=== PATIENT | male | born 1940 | race Two or more races ===

== ENCOUNTER 2017-05-31 20:24 | Emergency (ER) | payer MEDICARE ==
[~2017-05-31] VITALS: Ht 167.6 cm; Wt 89.8 kg
[2017-05-31] MEDS ORDERED: VANCOMYCIN PER PHARMACY MC ONE (21:00)
[2017-05-31] MEDS ORDERED: 0.9 % SODIUM CHLORIDE 10 ML DISP.SYRIN. IV PRN (21:00)
[2017-05-31] MEDS ORDERED: PIP/TAZO PER PHARMACY MC PRN (21:00)
[2017-05-31] MEDS ORDERED: NOREPINEPHRINE BITARTRATE 8 MG in IV NORMAL SALINE 250ML 250 ML IV PRN (21:00)
[2017-05-31] MEDS ORDERED: NORMAL SALINE IV SCH (21:00)
[2017-05-31] MEDS ORDERED: HYDROCORTISONE SOD SUCC/PF 100 MG/2 ML VIAL. IV ONE (21:30)
[2017-05-31 21:42] LABS: BASO # 0.1 x10^3/uL (0.0-0.2); BASO % 0 % (0-3); EOS % 0 % (0-3); HEMATOCRIT 27.2 % (39.0-53.0); HEMOGLOBIN 9.1 g/dL (13.0-17.5); LYMPH # 0.7 x10^3/uL (1.0-4.8); LYMPH % 3 % (24-48); MEAN CORPUSCULAR HEMOGLOBIN 29 pg (25-35); MEAN CORPUSCULAR HGB CONC 33 g/dL (31-37); MEAN CORPUSCULAR VOLUME 88 fL (79-100); MONO # 1.8 x10^3/uL (0.0-1.1); MONO % 8 % (0-9); NEUT # 19.5 x10^3uL (1.8-7.7); NEUT % 88 % (31-73); PLATELET COUNT 209 x10^3/uL (140-400); RED CELL DISTRIBUTION WIDTH 14.4 % (11.5-14.5); WHITE BLOOD COUNT 22.1 x10^3/uL (4.0-11.0)
[2017-05-31] MEDS ORDERED: PIPERACILLIN/TAZOBACTAM 4.5 GM in IV NORMAL SALINE 50ML 50 ML IV ONE (21:45)
[2017-05-31] MEDS ORDERED: VANCOMYCIN 2 GM in IV NORMAL SALINE 500ML 500 ML IV ONE (21:45)
[2017-05-31 22:04] LABS: ALBUMIN 3.1 g/dL (3.4-5.0); ALBUMIN/GLOBULIN RATIO 0.8 (1.0-1.7); CALCIUM 8.8 mg/dL (8.5-10.1); CREATININE 7.4 mg/dL (0.7-1.3); GFR 7.2; POTASSIUM 5.2 mmol/L (3.5-5.1); TOTAL BILIRUBIN 0.3 mg/dL (0.2-1.0); TOTAL PROTEIN 6.8 g/dL (6.4-8.2)
[2017-05-31 22:09] LABS: INFLUENZA A PATIENT NEGATIVE (NEGATIVE); INFLUENZA B PATIENT NEGATIVE (NEGATIVE)
[2017-05-31 22:59] LABS: BILIRUBIN,URINE NEG (NEG); CLARITY,URINE HAZY; COLOR,URINE STRAW; GLUCOSE,URINE NEG (NEG)
[2017-05-31 23:00] LABS: AMORPHOUS SEDIMENT,UR PRESENT /HPF; BACTERIA,URINE MANY /HPF (0-FEW); NITRITE,URINE NEG (NEG); SQUAMOUS EPITHELIAL CELL,UR OCC /LPF; UROBILINOGEN,URINE 0.2 mg/dL (0.2 mg/dL)
[2017-05-31 23:00] LABS: % LYMPHS 2 % (24-48); % MONOS 7 % (0-10); % SEGS 91 % (35-66)
[2017-05-31 23:01] LABS: PLT ESTIMATE ADEQUATE (ADEQUATE)
--- NOTE | 2017-05-31 23:07 | EKG ---
[address] [address] Test Date: 2017-05-31 Test Time: 21:21:39 Pat Name: DORENE MOLINA Department: Room: Gender: M Community Aide: : 1940 Requested By: LUIS ANGEL MILNER Order Number: [id number] Reading MD: Measurements Intervals [place] Rate: 89 P: 35 NE: 154 QRS: 9 QRSD: 102 T: -31 QT: 344 QTc: 425 Interpretive Statements SINUS RHYTHM QRS(T) CONTOUR ABNORMALITY CONSISTENT WITH INFERIOR INFARCT AGE UNDETERMINED ST & T ABNORMALITY, CONSIDER ANTEROLATERAL ISCHEMIA OR LEFT VENTRICULAR STRAIN ABNORMAL ECG RI6.01 No previous ECG available for comparison
[2017-05-31] MEDS ORDERED: BISA5TAB4 PO (23:38)
[2017-05-31] MEDS ORDERED: PRAV20TA2 PO (23:38)
[2017-05-31] MEDS ORDERED: GABA600T2 PO (23:38)
[2017-05-31] MEDS ORDERED: LOSA50TA6 PO (23:38)
[2017-05-31] MEDS ORDERED: ASCO500T55 PO ×2 (23:38)
[2017-05-31] MEDS ORDERED: CLON0.1T PO (23:38)
[2017-05-31] MEDS ORDERED: MULT1TAB52 PO (23:38)
[2017-05-31] MEDS ORDERED: CEPH-281 PO (23:38)
[2017-05-31] MEDS ORDERED: OMEG-57 PO (23:38)
[2017-05-31] MEDS ORDERED: ASPI81TA44 PO (23:38)
[2017-06-01 01:00] VITALS: BP 126/56
--- NOTE | 2017-06-01 06:10 | ED.ADGEN ---
Past History Past Medical History: Constipation, Hypertension, Renal Disease, UTI Past Surgical History: TURP Alcohol Use: None Drug Use: None Adult General Chief Complaint Chief Complaint " I am sick.. really sick.." HPI HPI Patient is a 77 year old male who is visiting from [place] for his son' s promotion to [employer] tomorrow. Patient complaining of rigors and fever, generalized malaise, myalgia, arthralgia. states patient is also had some mental status changes with the elevated temps of excess of 103 at son 's home tonight. Patient currently on Keflex for possible urinary tract infection issued by his primary care physician in [place]. Patient has history of previous renal insufficiency, hypertrophic prostate, diabetes. No specific history of immunosuppression and ill contacts. Recent travel for [place]. Review of Systems Review of Systems Constitutional: History of fever or chills [] Eyes: Denies change in visual acuity, redness, or eye pain [] HENT: Denies nasal congestion or sore throat [] Respiratory: History of a non-reductive cough and shortness of breath [] Cardiovascular: No additional information not addressed in HPI [] GI: Denies abdominal pain, nausea, vomiting, bloody stools or diarrhea [] : History of dysuria] Musculoskeletal: Recent ]history of generalized myalgia and arthralgia Integument: Denies rash or skin lesions [] Neurologic: Denies headache, focal weakness or sensory changes [] Endocrine: Denies polyuria or polydipsia [] Family History Family History Diabetes Current Medications Current Medications Current Medications Medications (Trade) Dose Ordered Sig/Bib Start Time Stop Time Status Last Admin Dose Admin Fentanyl Citrate (Fentanyl 2ml Vial) 25 mcg PRN Q15MIN PRN 05/31/17 21:00 06/01/17 01:58 DC Hydrocortisone Sodium Succinate (Solu-CORTEF) 100 mg 1X ONCE 05/31/17 21:30 05/31/17 21:31 DC 05/31/17 22:33 100 MG Norepinephrine Bitartrate 8 mg/ Sodium Chloride 258 ml @ 0 mls/hr CONT PRN 05/31/17 21:00 06/01/17 01:58 DC Piperacillin Sod/ Tazobactam Sod (Zosyn Per Pharmacy) 1 each PRN DAILY PRN 05/31/17 21:00 06/01/17 01:58 DC Piperacillin Sod/ Tazobactam Sod 4.5 gm/Sodium Chloride 50 ml @ 100 mls/hr 1X ONCE 05/31/17 21:45 05/31/17 22:14 DC 05/31/17 22:35 100 MLS/HR Sodium Chloride 2,700 ml @ 2,700 mls/hr Q1H 05/31/17 21:00 06/01/17 01:58 DC 05/31/17 22:29 2,700 MLS/HR Sodium Chloride (Normal Saline Flush) 10 ml QSHIFT PRN 05/31/17 21:00 06/01/17 01:58 DC Vancomycin HCl (Vanco Per Pharmacy) 1 each 1X ONCE 05/31/17 21:00 05/31/17 21:24 DC Vancomycin HCl 2 gm/Sodium Chloride 500 ml @ 250 mls/hr 1X ONCE 05/31/17 21:45 05/31/17 23:44 DC 05/31/17 22:29 250 MLS/HR See nursing for home medications Allergies Allergies Allergies Coded Allergies Type Severity Reaction Last Updated Verified No Known Drug Allergies 05/31/17 No Physical Exam Physical Exam Constitutional: In acute distress, ill in appearance. [] HENT: Normocephalic, atraumatic, bilateral external ears normal, oropharynx moist, no oral exudates, nose normal. [] Eyes: PERRLA, EOMI, conjunctiva normal, no discharge. [] Neck: Normal range of motion, no tenderness, supple, no stridor. [] Cardiovascular: Tachycardia rate regular rhythm, no murmur, PMI to the left Lungs & Thorax: Bilateral breath sounds equal with few scattered wheezes on auscultation [] Abdomen: Bowel sounds normal, soft, no tenderness, no masses, no pulsatile masses. [] Skin: Warm, diaphoretic, no erythema, no rash. [] Back: No tenderness, no CVA tenderness. [] Extremities: No tenderness, no cyanosis, no clubbing, ROM intact, no edema. No obvious signs of cording Neurologic: Alert and oriented X 3, generalized motor weakness, decreased plantar sensory function, no gross focal deficits noted. [] Psychologic: Affect anxious, mood depressed Current Patient Data Vital Signs Vital Signs Date Time Temp Pulse Resp B/P (MAP) Pulse Ox O2 Delivery O2 Flow Rate FiO2 06/01/17 01:00 99.2 90 18 126/56 (79) 96 Room Air Lab Results Laboratory Tests Test 05/31/17 20:58 05/31/17 22:00 White Blood Count 22.1 x10^3/uL (4.0-11.0) H Red Blood Count 3.10 x10^6/uL (4.30-5.70) L Hemoglobin 9.1 g/dL (13.0-17.5) L Hematocrit 27.2 % (39.0-53.0) L Mean Corpuscular Volume 88 fL (79-100) Mean Corpuscular Hemoglobin 29 pg (25-35) Mean Corpuscular Hemoglobin Concent 33 g/dL (31-37) Red Cell Distribution Width 14.4 % (11.5-14.5) Platelet Count 209 x10^3/uL (140-400) Neutrophils (%) (Auto) 88 % (31-73) H Lymphocytes (%) (Auto) 3 % (24-48) L Monocytes (%) (Auto) 8 % (0-9) Eosinophils (%) (Auto) 0 % (0-3) Basophils (%) (Auto) 0 % (0-3) Neutrophils # (Auto) 19.5 x10^3uL (1.8-7.7) H Lymphocytes # (Auto) 0.7 x10^3/uL (1.0-4.8) L Monocytes # (Auto) 1.8 x10^3/uL (0.0-1.1) H Eosinophils # (Auto) 0.0 x10^3/uL (0.0-0.7) Basophils # (Auto) 0.1 x10^3/uL (0.0-0.2) Segmented Neutrophils % 91 % (35-66) H Lymphocytes % 2 % (24-48) L Monocytes % 7 % (0-10) Platelet Estimate Adequate (ADEQUATE) Prothrombin Time 11.2 SEC (9.4-11.4) Prothrombin Time INR 1.1 (0.9-1.1) PTT 28 SEC (23-33) D-Dimer (Yeni) 2.89 mg/L (0.00-0.50) H Sodium Level 136 mmol/L (136-145) Potassium Level 5.2 mmol/L (3.5-5.1) H Chloride Level 106 mmol/L (98-107) Carbon Dioxide Level 16 mmol/L (21-32) L Anion Gap 14 (6-14) Blood Urea Nitrogen 94 mg/dL (8-26) H Creatinine 7.4 mg/dL (0.7-1.3) H Estimated GFR (Cockcroft-Gault) 7.2 BUN/Creatinine Ratio 13 (6-20) Glucose Level 124 mg/dL (70-99) H Lactic Acid Level < 0.3 mmol/L (0.4-2.0) L Calcium Level 8.8 mg/dL (8.5-10.1) Total Bilirubin 0.3 mg/dL (0.2-1.0) Aspartate Amino Transferase (AST) 15 U/L (15-37) Alanine Aminotransferase (ALT) 19 U/L (16-63) Alkaline Phosphatase 64 U/L (46-116) Creatine Kinase 102 U/L (39-308) Creatine Kinase MB (Mass) 3.3 ng/mL (0.0-3.6) Creatine Kinase MB Relative Index 3.2 % (0-4) Troponin I Quantitative 1.667 ng/mL (0-0.055) H Total Protein 6.8 g/dL (6.4-8.2) Albumin 3.1 g/dL (3.4-5.0) L Albumin/Globulin Ratio 0.8 (1.0-1.7) L Amylase Level 85 U/L (25-115) Lipase 280 U/L (73-393) Influenza Type A (Rapid) Negative (NEGATIVE) Influenza Type B (Rapid) Negative (NEGATIVE) Urine Collection Type U cath Urine Color Straw Urine Clarity Hazy Urine pH 5.5 Urine Specific [place] 1.010 Urine Protein 30 mg/dl (NEG-TRACE) Urine Glucose (UA) Neg mg/dL (NEG) Urine Ketones (Stick) Neg mg/dL (NEG) Urine Blood Mod (NEG) Urine Nitrite Neg (NEG) Urine Bilirubin Neg (NEG) Urine Urobilinogen Dipstick 0.2 mg/dL (0.2 mg/dL) Urine Leukocyte Esterase Small (NEG) Urine RBC 6-10 /HPF (0-2) Urine WBC 11-20 /HPF (0-4) Urine Squamous Epithelial Cells Occ /LPF Urine Amorphous Sediment Present /HPF Urine Bacteria Many /HPF (0-FEW) EKG EKG My interpretation EKG shows a sinus rhythm at 89 bpm. Some nonspecific inferior changes. Anterior lateral or ventricular strain pattern bundle branch block.[] Radiology/Procedures Radiology/Procedures My interpretation of chest x-ray shows cardiomegaly. Degenerative joint changes. Some increased cephalization.[] Course & Med Decision Making Course & Med Decision Making Pertinent Labs and Imaging studies reviewed. (See chart for details) Discussed presentation, testing and treatment plan with Dr. Ureña - will transfer to [facility] for further tx. and eval. Cardiology and ID consults. [] Final Impression Final Impression 1. SIRS/ Spesis 2. UTI 3. Fever 4. Acute on chronic renal failure 5. Diabetes 6. Hyperkalemia 7. Dehydration 8. Leukocytosis and anemia 9. Elevated troponin 10. Elevated d-dimer[] Problems: Dragon Disclaimer Dragon Disclaimer This electronic medical record was generated, in whole or in part, using a voice recognition dictation system. LUIS ANGEL MILNER MD Jun 01, 2017 06:10
--- NOTE | 2017-06-01 11:06 | RAD ---
Portable AP view CXR: Clinical indications: Fever and cough and congestion and weakness. Comparison: None available. Findings: No acute lung infiltrate or pleural effusion or pulmonary edema or lung mass or pneumothorax is seen. A hiatal hernia is evident. AP magnification of the heart size is seen which is accentuated by the lordotic positioning as well. The pulmonary vasculature, mediastinum and both iglesia are otherwise unremarkable. Impression: No acute radiographic abnormality is seen.
== END 2017-06-01 01:05 | disposition short-term general hospital (02) ==
LOC: EDBD 20:24 → ER 20:24
DX: N39.0 Urinary tract infection, site not specified (principal); N17.9 Acute kidney failure, unspecified; N18.9 Chronic kidney disease, unspecified; I12.9 Hypertensive chronic kidney disease with stage 1 through stage 4 chronic kidney disease, or unspecified chronic kidney disease; E11.22 Type 2 diabetes mellitus with diabetic chronic kidney disease; E87.5 Hyperkalemia; E86.0 Dehydration; R79.1 Abnormal coagulation profile; R79.89 Other specified abnormal findings of blood chemistry; D64.9 Anemia, unspecified
CPT/HCPCS: 36415; 51702; 71010; 80053; 81001; 82150; 82553; 83605; 83690; 84484; 85007; 85025; 85379; 85610; 85730; 87040; 87086; 87804; 93005; 96365; 96366; 96368; 96375; 99285; J2543; J3370; J7040; J7030